=== PATIENT | male | born 1985 | race African-American/Black ===

== ENCOUNTER 2017-11-12 00:08 | Emergency (ER) | payer SELFPAY ==
[~2017-11-12] VITALS: Ht 177.8 cm; Wt 82.5 kg
[2017-11-12 00:16] VITALS: Ht 177.8 cm; Wt 82.5 kg
[2017-11-12 00:38] VITALS: BP 133/75
== END 2017-11-12 00:38 | disposition home or self-care (01) ==
LOC: ED 00:08
DX: H92.02 Otalgia, left ear (principal); R03.0 Elevated blood-pressure reading, without diagnosis of hypertension; Z88.8 Allergy status to other drugs, medicaments and biological substances

== ENCOUNTER 2019-01-17 16:30 | Emergency (ER) | payer SELFPAY ==
[~2019-01-17] VITALS: Ht 177.8 cm; Wt 84.8 kg
[2019-01-17 16:39] VITALS: Ht 177.8 cm; Wt 84.8 kg
[2019-01-17 17:34] VITALS: BP 138/73
== END 2019-01-17 17:34 | disposition home or self-care (01) ==
LOC: ED 16:30
DX: K21.9 Gastro-esophageal reflux disease without esophagitis (principal); Z88.8 Allergy status to other drugs, medicaments and biological substances